=== PATIENT | male | born 1960 | race Caucasian/White ===

== ENCOUNTER 2021-03-15 22:24 | Emergency (ER) | payer OTHER, SELFPAY ==
[2021-03-15 22:32] VITALS: BP 197/124; PULSE 85; RESP 20; TEMP 36.4; O2SAT 98; BMI 23.9
--- NOTE | 2021-03-15 22:51 | W.ED.DENTAL ---
HPI - Dental/Oral General: Chief complaint: Dental/Oral Stated complaint: Tooth Ache Time Seen by Provider: 03/15/21 22:37 History of Present Illness: 60-year-old male patient comes in with a left lower molar causing him pain starting yesterday. Patient was able to use acetaminophen yesterday to control pain but today was unable to control pain with any medication. Patient will apply ice to the area and has some relief. MD Complaint: tooth pain Location: Tooth # (18) Onset (ago): day(s) Duration: constant Severity: moderate Relieving factors: other (Ice) Review of Systems General: Reports: 10 or more systems reviewed and unremarkable except in HPI and below ENMT: Reports: throat pain Physical Exam HENMT: COMMON NORMALS: normocephalic HEAD & SCALP: normocephalic TEETH & GINGIVA IMAGES: 1. Eye: COMMON NORMALS: Equal, round and reactive pupils present and EOMs intact bilaterally PUPIL: Yes Equal, round and reactive pupils present Lymph: LYMPHATIC: no lymphadenopathy noted Resp: COMMON NORMALS: normal respiratory effort and clear to auscultation bilaterally AUSCULTATION: clear to auscultation bilaterally Cardio: COMMON NORMALS: regular rate RATE: regular rate Extremity: COMMON NORMALS: normal to inspection Skin: COMMON NORMALS: no rashes or lesions noted GENERAL SKIN EXAM: no rashes or lesions noted Course Vital Signs: Vital signs: Vital Signs Temperature 97.5 F L 03/15/21 22:32 Pulse Rate 85 03/15/21 22:32 Respiratory Rate 20 H 03/15/21 22:32 Blood Pressure 197/124 03/15/21 22:32 Pulse Oximetry 98 03/15/21 22:32 MDM - Dental/Oral Medical Decision Making 60-year-old male patient comes in today with dental pain. On exam patient has a carious tooth in the left lower molar with significant dentition loss. Tooth is cracked off in the posterior aspect of the molar. Mild swelling is noted to the gingival area. No significant swelling is noted to the face. Patient manages secretions well. Vital signs are normal except for some elevation in blood pressure. Differential diagnosis includes dental abscess, pain due to dental carry, retropharyngeal abscess. No sign of asymmetry or retropharyngeal abscess or significant cellulitis is noted at this time. Patient will be treated with oral antibiotic clindamycin due to his allergies to penicillin and sulfa. Patient was also given some viscous lidocaine for pain control and hydrocodone for further pain control. Encourage follow-up with dentist. Return to the ER for new concerns. Differential Diagnosis Likely dental caries, toothache, dental abscess and fracture of tooth Discharge Plan Discharge Patient Disposition: Home Clinical Impression: Dental abscess Condition: Stable Prescriptions: New Lidocaine Viscous 2 % solution 10 ml mucous membrane Q3H PRN (Reason: pain) Qty: 100 0RF hydrocodone-acetaminophen 5-325 mg tablet 1 tab PO Q6H PRN (Reason: pain) Qty: 7 0RF clindamycin HCl 300 mg capsule 300 mg PO Q6H 7 Days Qty: 28 0RF No Action fexofenadine [Mona Allergy] 60 mg tablet 60 mg PO DAILY 0RF fluticasone propionate [Flonase Allergy Relief] 50 mcg/actuation spray,suspension 1 spray intranasal DAILY 7 Days Qty: 16 0RF Rx Instructions: administer into each nostril Discharge Orders: Discharge ED (Routine); Ordered 03/15/21 Ordered By: Rui Thomas Referrals: Nick Anderson DO [Primary Care Provider] - Discharge Diet: Usual diet Discharge Activity: Increase activity as tolerated Patient Instructions: Dental Abscess (ED), Opioid Safety Activity Restrictions/Additional Instructions: Home and rest. Continue with ice packs to the area for pain control. Use viscous lidocaine by applying solution to a cottonball and placing in the area of the open cavity and hold in place until pain relief. Use acetaminophen and ibuprofen otherwise for pain. Take clindamycin 4 times a day for the next 7 days. Use hydrocodone for breakthrough pain. Drink plenty of water with medications. Follow-up with dentist for definitive care and treatment. 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
[2021-03-15] MEDS: clindamycin 150 mg Capsule 300 MG PO (22:53)
[2021-03-15] MEDS: HYDROcodone-acetaminophen 5-325 mg Tablet 1 TAB PO (22:53)
[2021-03-15] MEDS: lidocaine 2% viscous 15 mL UDC 10 ML MUCOUS MEM (22:54)
[2021-03-15 23:15] VITALS: BP 179/99; PULSE 81; RESP 18; TEMP 36.7; O2SAT 98
== END 2021-03-15 23:17 | disposition home or self-care (01) ==
PROVIDERS: Emergency Provider Nurse Practitioner Family; PCP Internal Medicine
DX: K04.7 Periapical abscess without sinus (principal)
CPT/HCPCS: 99283

== ENCOUNTER 2021-04-01 16:59 | Emergency (ER) | payer OTHER, SELFPAY ==
[2021-04-01 17:06] VITALS: BP 124/83; PULSE 89; RESP 17; TEMP 36.6; O2SAT 96; BMI 24.0
--- NOTE | 2021-04-01 17:12 | ED_ITS ---
HPI - Allergic Reaction General: Chief complaint: Allergic Reaction Stated complaint: sore on left side with rash Time Seen by Provider: 04/01/21 17:12 History of Present Illness: HPI narrative: 60-year-old male patient comes in with generalized rash to the anterior aspects of his body. Patient also has a sore to his left hip that he wanted evaluated. Patient appears well. Patient appears no acute distress. Patient denies any change in detergents. Patient did report that the rash started about 1 week after stopping a course of antibiotics. Patient also noticed in the last week a sore to his left hip that he was able to express purulent drainage from and since then has had some improvement in the wound. Review of Systems General: Reports: 10 or more systems reviewed and unremarkable except in HPI and below Skin/Breast: Reports: rash and new lesions Physical Exam Const: COMMON NORMALS: alert Neck/C-Spine: COMMON NORMALS: full ROM Lymph: LYMPHATIC: no lymphadenopathy noted Resp: COMMON NORMALS: normal respiratory effort Cardio: COMMON NORMALS: regular rate and regular rhythm RATE: regular rate RHYTHM: regular rhythm Extremity: COMMON NORMALS: normal to inspection and no pedal edema Neuro: SENSORIUM/ORIENTATION: Yes alert Psych: COMMON NORMALS: cooperative Skin: LESIONS: lesion noted (Pustular lesion noted to the left hip 1 cm in size) RASHES: rashes noted (Maculopapular rash to the anterior aspects of patient's torso and lower ext) Course Vital Signs: Vital signs: Vital Signs Temperature 97.8 F 04/01/21 17:06 Pulse Rate 89 04/01/21 17:06 Respiratory Rate 17 04/01/21 17:06 Blood Pressure 124/83 04/01/21 17:06 Pulse Oximetry 96 04/01/21 17:06 MDM - Allergic Reaction Medical Decision Making Patient came in today with complaints of a rash to his torso and lower extremities. Patient reports itching with the rash. Patient also has a lesion to the left hip. Exam noted maculopapular rash to the anterior aspects of the torso and lower extremities with scratching indicated to the rash. Patient also has a small pustular lesion with no significant fluctuance about 1 cm of redn ess. Differential diagnosis includes allergic reaction, eczema, fungal infection. Suspect patient probably has some eczema and having a case of Choe itch. Recommend hydrocortisone cream twice a day to the rash for clearance. Recommend Benadryl to help with itching. Patient also has a small infected hair follicle to the left hip. Recommended antibiotic ointment twice a day to the lesion until it healed. Patient reported understanding agreed to plan. Discharge Plan Discharge Patient Disposition: Home Clinical Impression: Winter itch, Folliculitis Condition: Stable Prescriptions: New hydrocortisone 1 % lotion 1 applic topical BID Qty: 120 0RF mupirocin 2 % ointment 1 applic topical BID Qty: 22 0RF No Action fexofenadine [Mona Allergy] 60 mg tablet 60 mg PO DAILY 0RF fluticasone propionate [Flonase Allergy Relief] 50 mcg/actuation spray,suspension 1 spray intranasal DAILY 7 Days Qty: 16 0RF Rx Instructions: administer into each nostril triamcinolone acetonide 0.025 % cream 1 applic topical DAILY 7 Days Qty: 15 0RF Discharge Orders: Discharge ED (Routine); Ordered 04/01/21 Ordered By: Rui Thomas Referrals: Nick Anderson DO [Primary Care Provider] - Discharge Diet: Usual diet Discharge Activity: Increase activity as tolerated Patient Instructions: Eczema (ED) Activity Restrictions/Additional Instructions: Use hydrocortisone lotion to the rash to help with itching and clearance of the rash. Avoid scratching the rash. Use [id number] Benadryl as needed for itching. Drink plenty of water with medication. Use mupirocin ointment, the antibiotic ointment, twice daily to the sore to your left hip. Monitor for worsening symptoms such as fever and increasing redness to the sore. Follow-up with primary care in 3 days for recheck. Return to ER for worsening symptoms or new concerns. 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
== END 2021-04-01 17:36 | disposition home or self-care (01) ==
PROVIDERS: Emergency Provider Nurse Practitioner Family; PCP Internal Medicine
DX: L29.8 Other pruritus (principal); L73.9 Follicular disorder, unspecified
CPT/HCPCS: 99281